=== PATIENT | female | born 1975 | race American Indian/Alaskan Native ===

== ENCOUNTER 2016-11-14 12:29 | Outpatient (CLI) | payer MEDICAID ==
[2016-11-14 13:27] VITALS: BP 113/59
[2016-11-14 13:56] LABS: Bilirubin,Urine NEG (Negative); Blood,Urine NEG (Negative); Ketones,Urine NEG (Negative); Leukocyte Esterase,Urine TR (Negative); Mucus,Urine 2+ /HPF; Nitrite,Urine NEG (Negative); Protein,Urine <15 mg/dL mg/dL (Negative)
== END 2016-11-14 15:00 | disposition home or self-care (01) ==
LOC: TRG 12:29
PROVIDERS: ATTEND Obstetrics & Gynecology
DX: O09.523 Supervision of elderly multigravida, third trimester (principal); O47.03 False labor before 37 completed weeks of gestation, third trimester; Z3A.29 29 weeks gestation of pregnancy
CPT/HCPCS: 59025; 81001

== ENCOUNTER 2017-01-23 09:31 | Inpatient (IN) | payer MEDICAID ==
--- NOTE | 2017-01-22 18:42 | History and Physical Report ---
History of Present Illness Date of examination: 01/20/17 Date of admission: 01/23/19 Chief complaint: Pt here for repeat c/s History of present illness: Pt here for repeat c/s. All risk, benefits, and alternatives have been d/w pt and all questions were addressed and answered. Consents signed and placed on the chart. EDC Calculations LMP: 01/28/2017 Past History : 5 Term Births: 3 Premature Births: 1 Living Children: 4 Para: 4 Prev. attempt? success x2+ # 1 Delivery date: 03/12/1991 Weeks Gestation: 38 Delivery type: Hours of labor: 12 Anesthesia type: none [place] [facility] [place] Sex: Male weight: 6-2 Name: Kings # 2 Delivery date: 11/30/1991 Weeks Gestation: 27 Delivery type: Anesthesia type: general Delivery location: [facility] Infant Sex: Female weight: 1-10 Name: Anjel Comments: Abruption # 3 Delivery date: 10/27/1995 Weeks Gestation: 38 labor: yes Delivery type: Hours of labor: 7 Anesthesia type: epidural Delivery location: [place] Sex: Female weight: 6-4 Name: Martha # 4 Delivery date: 07/05/1997 Weeks Gestation: 38 labor: no Delivery type: Hours of labor: 8 Anesthesia type: epidural Delivery location: [facility] Infant Sex: Male weight: 6-2 Name: Tredarious Past Medical History: Bronchitis Past Surgical History: (11/30/1991) Family History Summary: Other family member - Has No Family History of Ovarvian Cancer - Entered On: 06/13 Other family member - Has Family History of Hypertension - Entered On: 06/13/2016 Other family member - Has Family History of Diabetes - Entered On: 06/13/2016 Other family member - Has Family History of Coronary Heart Disease - Entered On : 06/13/2016 Other family member - Has Family History Colon Cancer - Entered On: 06/13/2016 Other family member - Has Family History Breast Cancer - Entered On: 06/13/2016 Social History: unemployed Patient is single Risk Factors: Smoked Tobacco Use: Current every day smoker Cigarettes: Yes -- 1 pack(s) per day, Year started: 1989 Counseled to quit/cut down: yes Drug use: no HIV high-risk behavior: low risk Alcohol use: yes Drinks per day: social PAP Smear History: Date of Last PAP Smear: 02/07/2006 Results: normal Past Medical History 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 of genital herpes: no Partner hx. 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 PAP smear Family/Genetic History: none Social history: no significant social history, single - Obstetrical History Expected Date of Delivery: 01/28/17 Actual Gestation: 39 Week(s) 1 Day(s) : 5 Para: 4 Hx # Term Pregnancies: 3 Number of Pregnancies: 1 Number of Living Children: 4 Medications and Allergies Allergies Allergy/AdvReac Type Severity Reaction Status Date / Time No Known Allergies Allergy Verified 11/14/16 13:25 Home Medications Medication Instructions Recorded Confirmed Last Taken Type Ferrous Sulfate [Feosol] 325 mg PO QDAY 11/14/16 11/14/16 11/14/16 09:00 History 1 Hydroxyprogesterone Caproat/Pf 250 mg IM QWEEK 11/14/16 11/14/16 11/14/16 09:00 History [[place]cloud] 1 Vit-Fe Fumar-FA [ 1 tab PO QDAY 11/14/16 11/14/16 11/14/16 09: 00 History Vitamin] 1 Active Meds: Active Medications Citric Acid/Sodium Citrate (Bicitra) 30 ml PO ONCE ONE Stop: 01/23/17 06:01 Famotidine (Pepcid) 20 mg IV ONCE ONE Stop: 01/23/17 06:01 Cefazolin Sodium (Ancef/Sterile Water 2 Gm/20 Ml) 2 gm in 20 mls @ 80 mls/hr IV PREOP NR PRN Reason: Protocol Lactated Ringer's (Lactated Ringers) 1,000 mls @ 2,250 mls/hr IV PREOP MONAE Stop: 01/23/17 19:27 Oxytocin/Sodium Chloride (Pitocin/Ns 20 Unit/1000ml Drip) 20 units in 1,000 mls @ 0 mls/hr IV TITR MONAE PRN Reason: As Directed Metoclopramide HCl (Reglan) 10 mg IV ONCE ONE Stop: 01/23/17 06:01 Review of Systems All systems: negative - Physical Exam Breasts: Positive: deferred Cardiovascular: Normal S1, Normal S2 Lungs: Positive: Clear to auscultation Abdomen: Positive: normal appearance, soft. Negative: distention, tenderness, guarding Genitourinary (Female): Positive: other (deferred) Extremities: Positive: normal. Negative: tenderness, edema Deep Tendon Reflex Grade: Normal +2 Results All other labs normal. Assessment and Plan - Patient Problems (1) 39 weeks gestation of Status: Acute (2) Previous section complicating Status: Acute Plan to address problem: -admit for c/s -consents signed and placed on the chart (3) Advanced maternal age (AMA) in Status: Acute
[~2017-01-23 09:31] MED LIST: ANCEF/STERILE WATER 2 GM/20 ML 2 GM/20 ML SYRINGE IV NR; BICITRA PO SCH; PEPCID IV SCH; REGLAN IV SCH
--- NOTE | 2017-01-23 10:47 | Anesthesia Consultation ---
Anesthesia Consult and Med Hx Date of service: 01/23/17 - Airway Anesthetic Teeth Evaluation: Poor (multiple missing, broken teeth) ROM Head & Neck: Adequate Mental/Hyoid Distance: Adequate Mallampati Class: Class II Intubation Access Assessment: Probably Good - Pre-Operative Health Status ASA Pre-Surgery Classification: ASA2 Proposed Anesthetic Plan: Epidural, Spinal - Pulmonary Hx Smoking: Yes (1 p/day x 20 years) Hx Asthma: No - Cardiovascular System Hx Hypertension: No - Central Nervous System Hx Seizures: No Hx Psychiatric Problems: No - Endocrine Hx Renal Disease: No Hx Hypothyroidism: No Hx Hyperthyroidism: No - Hematic Hx Anemia: No Hx Sickle Cell Disease: No
--- NOTE | 2017-01-23 10:48 | Anesthesia Day of Surgery ---
Anesthesia Day of Surgery - Day of Surgery Patient Examined: Yes Patient H&P Reviewed: Yes Patient is NPO: Yes
[2017-01-23] MEDS ORDERED: LACTATED RINGERS 1,000 ML IV SCH (11:00)
[2017-01-23] MEDS ORDERED: PITOCin/NS 20 UNIT/1000ML DRIP 20 UNITS/1,000 ML BAG IV SCH ×2 (11:00→17:00)
[2017-01-23] MEDS ORDERED: NARCAN 0.4 MG/1 ML IV PRN ×2 (11:30→16:30)
[2017-01-23] MEDS ORDERED: ZOFRAN IV PRN (11:30)
[2017-01-23] MEDS ORDERED: MORPHINE IV PRN (11:30)
[2017-01-23] MEDS ORDERED: PHENERGAN PO PRN (11:30)
[2017-01-23] MEDS ORDERED: PHENERGAN PR PRN (11:30)
[2017-01-23] MEDS ORDERED: SODIUM CHLORIDE FLUSH SYRINGE 10 ML IV PRN (11:30)
[2017-01-23] MEDS ORDERED: TORADOL IV PRN (11:30)
[2017-01-23] MEDS ORDERED: BENADRYL IV PRN (11:30)
[2017-01-23 11:45] LABS: Basophils % (Auto) 0.7 % (0.0-1.8); Eosinophils % (Auto) 1.1 % (0.0-4.3); Hematocrit 31.9 % (30.3-42.9); Hemoglobin 10.5 gm/dl (10.1-14.3); Mean Corpuscular HGB Conc 33 % (30-34); Mean Corpuscular Hemoglobin 31 pg (28-32); Mean Corpuscular Volume 94 fl (79-97); Platelet Count 278 K/mm3 (140-440); Red Blood Count 3.42 M/mm3 (3.65-5.03); Red Cell Distribution Width 14.1 % (13.2-15.2)
[2017-01-23] MEDS ORDERED: NACL 0.9% IR ONE (15:00)
[2017-01-23] MEDS ORDERED: WATER FOR IRRIG STERILE IR ONE (15:00)
[2017-01-23] MEDS ORDERED: MORPHINE ONE (15:00)
[2017-01-23] MEDS ORDERED: NEO SYNEPHRINE/NS Syringe(OR USE) IV ONE (15:30)
[2017-01-23] MEDS ORDERED: NACL 0.9% 1000 ML 1,000 ML ONE (15:30)
[2017-01-23] MEDS ORDERED: MYLICON PO PRN (16:30)
[2017-01-23] MEDS ORDERED: MILK OF MAGNESIA PO PRN (16:30)
[2017-01-23] MEDS ORDERED: TUCKS PAD TP PRN (16:30)
[2017-01-23] MEDS ORDERED: NORCO 5/325 PO PRN (16:30)
[2017-01-23] MEDS ORDERED: LANSINOH TP PRN (16:30)
--- NOTE | 2017-01-23 16:44 | Operative Report ---
Operative Report Operative Report: Date of procedure: 01/23/2017 Pre-operative diagnosis: 39 weeks gestation Advanced maternal age Previous section Post-operative diagnosis: Same Procedure name(s): Repeat low transverse section via Pfannenstiel skin incision Surgeon: Dr. Gonzalez Duralumin Metalworker: OREN Anesthesia: Combined spinal epidural EBL: 700 mL Urine output: 100 mL of clear urine out at the end of the procedure Fluids: 1100 mL Findings: Liveborn male infant weight 7 lbs. 2 oz. Apgars of 8 and 9 at one and 5 minutes Right fundal fibroid approximately 2 cm in diameter Grossly normal fallopian tubes and ovaries bilaterally Indications: Patient presents for repeat section. All risks benefits and alternatives were discussed with the patient. Consents were signed and placed on the chart. Procedure: Patient was taking to the operating room. Patient was then prepped and draped in sterile fashion after anesthesia was found to be adequate. A low transverse skin incision was made with the scalpel through previous incisional scar and carried down to the underlying layer of fascia with the Bovie. The fascia was then incised in the midline and this incision was extended bilaterally with the Bovie. The superior aspect of the fascia was grasped with China clamps tented upward and dissected off of the anterior rectus muscles with the scalpel. In similar fashion the inferior aspect of the fascia was grasped with China clamps tented upward and dissected off of the anterior rectus muscles. The rectus muscles were then sharply divided in the midline. The peritoneum was identified and entered into sharply. The Gray retractor was placed. The bladder blade was placed. The bladder flap was created using the Metzenbaum scissors. The bladder blade was replaced. A lower transverse uterine incision was made with the scalpel and extended bilaterally with the bandage scissors. Artificial rupture of membranes was performed yielding clear amniotic fluid. The 's head was then delivered atraumatically. The anterior shoulder and rest of infant delivered without difficulty. The umbilical cord was clamped x2. The cord was cut. The infant was then placed in sterile bassinet. The cord blood not was collected. The placenta was manually extracted in its entirety. The uterus was exteriorized and cleared of all clots and debris. The uterine incision was closed using 0 Vicryl in a running locking fashion. A second imbricating layer of the same suture was then created. The posterior cul-de-sac was copiously irrigated. The uterus was returned to the abdomen. The gutters were also irrigated. The anterior rectus muscles were reapproximated using 3-0 Vicryl. The anterior rectus fascia was reapproximated using 0 Vicryl in a running fashion. The subcuticular fat was reapproximated using 2-0 Vicryl in a running fashion. The skin was reapproximated with 4-0 Monocryl in a subcuticular stitch. The patient tolerated the procedure well. Sponge lap and needle counts were all correct x3. Patient was taken to the recovery room awake and in stable condition.
[2017-01-23] MEDS ORDERED: ANCEF/NS 1 GM/50 ML 1 GM/50 ML BAG IV SCH (17:00)
--- NOTE | 2017-01-24 08:05 | Progress Note ---
Assessment and Plan patient doing well, no complaints this morning. VSSAF, H&H to ordered but not yet drawn, lochia scant. Patient denies any s/s anemia during ambulation. continue postop pathway. - Patient Problems (1) delivery delivered Current Visit: Yes Status: Acute Subjective - Subjective Date of service: 01/24/17 Principal diagnosis: day #1 s/p repeat c/s Patient reports: appetite normal, voiding normally, pain well controlled, flatus , ambulating normally, no dizzy ambulation, no nauseated : doing well, bottle feeding Objective - Vital Signs Latest vital signs: Vital Signs Temp Pulse Resp BP BP Pulse Ox 01/24/17 04:20 98.0 F 85 20 123/78 01/24/17 00:00 98.2 F 68 18 114/77 01/23/17 20:05 99.1 F 77 20 144/72 01/23/17 17:53 98.8 F 84 18 137/85 98 01/23/17 17:20 98.5 F 76 10 L 129/79 96 01/23/17 17:14 71 18 137/84 97 01/23/17 17:08 66 16 131/81 96 01/23/17 17:06 97.5 F L 01/23/17 17:00 70 16 131/72 98 01/23/17 16:54 78 18 127/83 96 01/23/17 16:48 67 12 137/79 96 01/23/17 16:42 82 15 133/85 97 01/23/17 16:36 74 20 119/82 98 01/23/17 16:30 69 12 119/82 100 01/23/17 16:25 73 22 125/81 100 01/23/17 16:20 72 15 124/68 99 01/23/17 16:18 97.8 F 76 16 124/68 98 01/23/17 10:00 93 H 125/90 98 01/23/17 09:59 98.2 F 68 18 125/90 98 Intake and Output 01/23/17 01/24/17 01/24/17 23:59 07:59 15:59 Intake Total 540 360 Output Total 950 800 Balance -410 -440 Intake: IV 300 Oral 240 360 Output: Urine 950 800 Indwelling Catheter 300 800 Other: Total, Intake Amount 240 120 Total, Output Amount 300 600 Estimated Blood Loss 700 - Exam Breasts: Present: normal Cardiovascular: Present: Regular rate Lungs: Present: Clear to auscultation, Normal air movement Abdomen: Present: normal appearance, soft Vulva: both: normal Uterus: Present: normal, firm, fundal height at umbilicus Extremities: Present: normal Deep Tendon Reflex Grade: Normal +2 Incision: Present: normal, dry, dressed (to be removed by RN today) - Labs Labs: Abnormal lab results 01/23/17 Range/Units 11:15 RBC 3.42 L (3.65-5.03) M/mm3
[2017-01-24] MEDS: MOTRIN PO PRN ×2 (08:09→22:04)
[2017-01-24 08:37] LABS: Hematocrit 26.4 % (30.3-42.9)
[2017-01-24] MEDS ORDERED: ceFAZolin 2 GM in NACL 0.9% 20 ML IV SCH (09:00)
--- NOTE | 2017-01-24 09:58 | Progress Note ---
Subjective Date of service: 01/24/17 Principal diagnosis: day #1 s/p repeat c/s Interval history: 1st POD after Patient is in the bed, comfortable. Pain is well controlled with pain meds. Ambulated well. No residual neurological deficit. Pruritus is mostly under control. No anesthesia complications. Objective - Constitutional Vitals: Vital Signs - 12hr 01/24/17 01/24/17 01/24/17 00:00 04:20 08:35 Temperature 98.2 F 98.0 F 98.5 F Pulse Rate 68 85 75 Respiratory 18 20 22 Rate Blood Pressure 114/77 123/78 136/78 [Left] O2 Sat by Pulse 100 Oximetry - Labs CBC & Chem 7: 01/24/17 07:55 Labs: Abnormal lab results 01/23/17 01/24/17 Range/Units 11:15 07:55 RBC 3.42 L (3.65-5.03) M/mm3 Hgb 9.0 L (10.1-14.3) gm/dl Hct 26.4 L (30.3-42.9) %
[2017-01-24] MEDS ORDERED: ceFAZolin 1 GM in NACL 0.9% 20 ML IV ONE (10:00)
[2017-01-24] MEDS ORDERED: ceFAZolin 1 GM in NACL 0.9% 20 ML IV SCH (10:00)
[2017-01-24] MEDS ORDERED: ANCEF/NS 1 GM/50 ML 1 GM/50 ML BAG IV SCH (10:00)
[2017-01-24] MEDS: NORCO 5/325 PO PRN ×2 (15:51→22:03)
[2017-01-25] MEDS ORDERED: BOOSTRIX IM ONE (06:00)
--- NOTE | 2017-01-25 07:00 | Discharge Summary ---
Providers - Providers Date of Admission: 01/23/17 09:38 Date of discharge: 01/25/17 (pt desires d/c) Attending physician: CHRISTIAN WEEKS Primary care physician: LIUDMILA LOPEZ Hospitalization Reason for admission: section Delivery: Procedure: repeat low transverse Episiotomy: none Laceration: none Incision: normal, dry, intact Other procedures: none complications: none Discharge diagnosis: IUP at term delivered baby: male Hospital course: uncomplicated repeat section Pt w/o complaint VSS FF below umb Lochia scant Incision D&I Stable H&H No s/sx of anemia Doing well s/p section P: d/c today with instructions RTO 1 week for postop care and son's circ. RX provided. Condition at discharge: Good Disposition: DC-01 TO HOME OR SELFCARE - Discharge Diagnoses (1) delivery delivered Status: Acute Comment: RTO 1 week for postop care Plan - Discharge Medications Prescriptions: Docusate Sodium [Colace] 100 mg PO BID PRN #60 capsule PRN Reason: Constipation Ferrous Sulfate 325 mg PO DAILY #30 tablet.dr Ibuprofen 800 mg PO Q6HR #30 tablet Lidocain2.5%/Prilocai2.5% [Emla] 2 gm TP ONCE #1 tube oxyCODONE /ACETAMINOPHEN [Percocet 5/325] 1 tab PO Q4HR #30 tab - Provider Discharge Summary Activity: routine, no sex for 6 weeks, no heavy lifting 4 weeks, no strenuous exercise Diet: routine Instructions: routine Additional instructions: [] Smoking cessation referral if applicable(refer to patient education folder for contact #) [] Refer to [facility] Booklet Call your doctor immediately for: * Fever > 100.5 * Heavy vaginal bleeding ( >1 pad per hour) * Severe persistent headache * Shortness of breath * Reddened, hot, painful area to leg or breast * Drainage or odor from incision. * Keep incision clean and dry at all times and follow doctor's instructions regarding bathing/showering - Follow up plan Follow up: LIUDMILA LOPEZ MD [Primary Care Provider] - 7 Days (Congratulations! Please call [phone] to schedule your postoperative visit in 1 week. Take medications as prescribed. Bring EMLA cream with you to your son's circumcision appointment. Call with any concerns)
[2017-01-25] MEDS: MOTRIN PO PRN ×2 (07:14→17:02)
[2017-01-25] MEDS: NORCO 5/325 PO PRN ×2 (07:14→17:01)
[2017-01-25 13:40] VITALS: BP 131/76
--- NOTE | 2017-02-02 08:49 | Query-Anemia ---
Rema Clark Carlos Date:___02/02/17 [employer] Vehicle Driver/CDS: Gricelda / Vipul Phone#:____[phone] Exercise your independent professional judgment when responding to this query. Questions asked do not imply a particular answer is desired or expected. We greatly appreciate your clarification on this issue. Clinical Documentation States: 41 year old female was admitted on 01/23/17 The Operative report (Dr. Gonzalez) states " Pre-operative diagnosis: 39 weeks gestation Advanced maternal age Previous section Post-operative diagnosis: Same Procedure name(s): Repeat low transverse section via Pfannenstiel skin incision EBL: 700 mL " Clinical Findings Show: 01/23/17 01/24/17 Hgb: 10.5 9.0 Hct: 31.9 26.4 Etiology: [ ] Precipitous Drop in Hemoglobin [ ] Precipitous Drop in Hematocrit [X ] Anemia due to acute blood loss [ ] Anemia due to chronic blood loss [ ] Anemia secondary to ESRD [ ] Anemia secondary to neoplastic disease [ ] Iron deficiency anemia due to malabsorption [ ] GI Bleed from: [ ] Anemia of chronic disease ,Other: [ ] Other: [ X] Unable to determine [ ] Comment/Explanation: Present on Admission: [ Y] Yes (Y) [ ] Clinically undeterminable (W) [ ] No (N) Please also document response in your Progress Notes and/or Discharge Summary and indicate if the condition was present on admission. LAURA
== END 2017-01-25 17:00 | disposition home or self-care (01) | DRG 765 ==
LOC: APU 09:38 → OB 18:22
PROVIDERS: ADMIT Obstetrics & Gynecology; ATTEND Obstetrics & Gynecology
PROC: 10D00Z1 Extraction of Products of Conception, Low, Open Approach (ICD-10-PCS; principal; 2017-01-23)
DX: O34.211 Maternal care for low transverse scar from previous cesarean delivery (principal); D62 Acute posthemorrhagic anemia; O99.334 Smoking (tobacco) complicating childbirth; F17.200 Nicotine dependence, unspecified, uncomplicated; Z3A.39 39 weeks gestation of pregnancy; Z37.0 Single live birth; Z82.49 Family history of ischemic heart disease and other diseases of the circulatory system; Z83.3 Family history of diabetes mellitus; Z80.3 Family history of malignant neoplasm of breast; Z80.8 Family history of malignant neoplasm of other organs or systems
CPT/HCPCS: 36415; 85014; 85018; 85025; 86850; 86900; 86901; 90471; 90715; C9250; J0690; J1885; J2270; J2370; J2405; J2590; J2765; J7030; J7120